=== PATIENT | male | born 1965 | race Caucasian/White ===

== ENCOUNTER → 2022-11-06 07:40 | Outpatient (REF) | payer SELFPAY | LOC: CVS 07:40 | PROVIDERS: PCP Family Medicine | DX: Z00.00 Encounter for general adult medical examination without abnormal findings (principal) ==

== ENCOUNTER → 2022-12-18 | Outpatient (CLI) | payer SELFPAY, OTHER ==
--- NOTE | 2022-12-18 12:43 | ECHOD_ITS ---
Reason For Study: FAMILY HX Procedure This was a 2D Doppler, Color Flow transthoracic echocardiogram. Exam performed in department. Left Ventricle Normal LV size. Left ventricular systolic function is normal. The estimated ejection fraction is 60 %. Stage 1 diastolic dysfunction. No regional wall motion abnormalities noted. Right Ventricle Normal RV size. Normal systolic function. Atria Normal left atrium. Normal right atrium. Mitral Valve Normal mitral valve. Tricuspid Valve Normal tricuspid valve. Aortic Valve Trisinus/trileaflet aortic valve. Pulmonic Valve Normal pulmonic valve. Great Vessels Normal aortic root. The pulmonary artery is normal size. Normal inferior vena cava. Pericardium/Pleural No pericardial effusion. MMode/2D Measurements & Calculations LVIDd: 4.6 cm IVSd: 1.2 cm Ao root diam: 3.7 cm LVIDs: 2.9 cm LVPWd: 0.95 cm RVDd: 4.3 cm FS: 36.8 % LAV(MOD-bp): 38.8 ml LVAd ap4: 30.5 cm2 SV(MOD-sp4): 56.1 ml LAV(MOD-bp) Indexed: 20.5 ml/m2 LVLd ap4: 8.5 cm LAV(MOD-sp2): 34.5 ml EDV(MOD-sp4): 93.2 ml LAV(MOD-sp4): 39.0 ml EDV(sp4-el): 93.1 ml LVAs ap4: 17.1 cm2 LVLs ap4: 7.1 cm ESV(MOD-sp4): 37.0 ml ESV(sp4-el): 34.8 ml EF(MOD-sp4): 60.3 % EF(sp4-el): 62.7 % SV(sp4-el): 58.4 ml LA A4 area: 15.8 cm2 LA dimension(2D): 2.9 cm RA A4 area: 20.2 cm2 TAPSE: 2.7 cm Time Measurements MV dec time: 0.27 sec Doppler Measurements & Calculations MV E max kirit: 64.0 cm/sec Lat Peak E' Kirit: 6.0 cm/sec Med Peak E' Kirit: 6.6 cm/sec MV A max kirit: 82.0 cm/sec E/E' lat: 10.7 E/E' med: 9.6 MV E/A: 0.78 MV V2 max: 85.5 cm/sec Ao V2 max: 119.7 cm/sec MV max P.9 mmHg MV dec slope: 240.2 cm/sec2 Ao max P.7 mmHg MV V2 mean: 45.8 cm/sec Ao V2 mean: 81.3 cm/sec MV mean P.97 mmHg Ao mean P.1 mmHg MV V2 VTI: 27.4 cm Ao V2 VTI: 25.8 cm AV (velocity ratio): 0.85 LV V1 max: 112.4 cm/sec PA V2 max: 95.3 cm/sec LV V1 max P.1 mmHg PA V2 mean: 66.3 cm/sec PI dec slope: 140.0 cm/sec2 LV V1 mean P.7 mmHg LV V1 mean: 76.2 cm/sec LV V1 VTI: 22.0 cm ECHO/Echo Complete Interpretation Summary Normal LV size. Left ventricular systolic function is normal. The estimated ejection fraction is 60 %. Stage 1 diastolic dysfunction. Structurally normal valves. Ordering Physician: Lobito Riggs Referring Physician: Lobito Riggs Performed By: Josseline Syed RCS
--- NOTE | 2022-12-18 13:00 | CT_ITS ---
STUDY: CT CHEST WITHOUT CONTRAST REASON FOR EXAM: Male, 57 years old. FM HX ISCHEMIC HEART DISEASE. Over read examination. RADIATION DOSAGE (If Supplied By Facility): CTDIvol = ( 12.19 ) mGy, DLP = ( 195.04 ) mGycm TECHNIQUE: Transaxial imaging was performed without the administration of intravenous contrast material. Individualized dose optimization techniques were used for this CT. COMPARISON: No relevant priors. FINDINGS: CHEST Mild degree of increased markings in the medial right middle lobe suggestive of scarring and/or atelectasis. There is no demonstrated pleural abnormality. There are mild calcifications of the coronary arteries. Normal mediastinum. Normal hilar regions. Normal unenhanced pulmonary arteries. There is mild degree of atherosclerotic calcification of the aortic arch. There are degenerative changes of the thoracic spine. There is no demonstrated abnormality of the visualized upper abdomen. CT/Limited Chest CT Cardiac Only IMPRESSION: Mild degree of increased markings in the medial right middle lobe suggestive of scarring and/or atelectasis. Mild coronary artery calcification. Electronically Signed: Osman Mohamud MD at 14:15 EDT ,
--- NOTE | 2022-12-18 13:18 | CA.SCORE ---
Calcium Scoring Date of Study:: 12/18/22 Coronary Calcium Scoring: High-resolution Computed Tomographic imaging of the chest was performed on [12/18/22 ], with particular attention paid to the coronary arteries. Images from the examination were analyzed for the presence and extent of coronary artery calcification , using coronary calcium quantification software. The patient tolerated the procedure well and there were no complications. The results of the coronary calcification analysis are provided below. Findings Coronary Artery Left Main (LM): 0 Left Anterior Descending (LAD): 11 Left Circumflex (LCX): 0 Right Coronary Artery (RCA): 0 Total Agatston Score: 11 Percentile Rankinth to 50th percentile Calcium Scoring Interpretation: Different methods to categorize the overall amount of coronary plaque. Overall amount CAC SIS Visual of coronary plaque P1 Mild -100 <2 1-2 vessels with mild amount of plaque P2 Moderate 101-300 3-4 1-2 vessels with moderate amount, 3 vessels with mild amount of plaque P3 Severe 301-999 5-7 3 vessels with moderate amount, 1 vessel with severe amount of plaque P4 Extensive >1000 >8 2-3 vessels with severe amount of plaque Calcium Score: Mild: 1-2 vessels w/mild amount of plaque Conclusion: Minimal atherosclerotic disease with no obstruction
== END | disposition home or self-care (01) ==
LOC: CVS 12:42
PROVIDERS: PCP Family Medicine; Referring Provider Internal Medicine Cardiovascular Disease; Visit Provider Internal Medicine Cardiovascular Disease
DX: I25.10 Atherosclerotic heart disease of native coronary artery without angina pectoris (principal); Z82.49 Family history of ischemic heart disease and other diseases of the circulatory system
CPT/HCPCS: 75571; 76380; 93306